=== PATIENT | male | born 1990 | race Caucasian/White ===

== ENCOUNTER 2019-06-08 12:40 | Emergency (ER) | payer OTHER ==
[2019-06-08 12:46] VITALS: BP 147/96; PULSE 72; TEMP 98; BMI 21.4
[2019-06-08] MEDS ORDERED: LIDOCAINE HCL 1%, 10 MG/ML (20ML VIAL) ONE (13:03)
--- NOTE | 2019-06-08 13:33 | PDOC ---
History of Present Illness - General Chief Complaint: Injury Stated Complaint: INJURY/LT. SHOUDLER Time Seen by Provider: 06/08/19 12:59 - History of Present Illness Initial Comments: 06/08/19 13:31 29-year-old male without comorbidities presents for evaluation of left shoulder pain after traction type injury which occurred while walking down steps Past History - Past Medical History Allergies/Adverse Reactions: Allergies Allergy/AdvReac Type Severity Reaction Status Date / Time No Known Allergies Allergy Verified 06/08/19 12:46 COPD: No - Psycho Social/Smoking Cessation Hx Smoking History: Never smoked Review of Systems - Review of Systems Musculoskeletal: Yes: Joint Pain *Physical Exam - Vital Signs Last Vital Signs Temp Pulse Resp BP Pulse Ox 98 F 72 18 147/96 98 06/08/19 12:43 06/08/19 12:43 06/08/19 12:43 06/08/19 12:43 06/08/19 12:43 - Physical Exam Comments: 06/08/19 13:31 Left shoulder deformity skin color and temperature are normal there is step-off of the glenohumeral joint without gross sensorimotor deficits ED Treatment Course - RADIOLOGY Radiology Studies Ordered: Category Date Time Status SHOULDER-LEFT [RAD] Stat Radiology 06/08/19 12:59 Completed SHOULDER-LEFT [RAD] Stat Radiology 06/08/19 13:23 Taken Medical Decision Making - Medical Decision Making 06/08/19 13:31 X-rays of the left shoulder show it anterior-inferior glenohumeral dislocation 15 cc of 1% lidocaine was injected into the glenohumeral joint gentle traction and countertraction was applied postreduction x-ray showed reduced glenohumeral joint patient was put in a sling and was neurovascularly intact post reduction Discharge - Discharge Information Problems reviewed: Yes Clinical Impression/Diagnosis: Shoulder dislocation Condition: Stable Disposition: HOME - Admission No - Follow up/Referral Referrals: Vito Dorsey DO [Staff Physician] - - Patient Discharge Instructions Additional Instructions: Tylenol and Motrin as directed for pain. Please keep the sling in place remove the sling for hygiene purposes and for gentle range of motion of the elbow. Follow-up with orthopedics in 1 to 2 days without fail for further evaluation and treatment options and return to the emergency room should you have further issues. - Post Discharge Activity Work/Back to School Note: Back to Work
== END 2019-06-08 13:48 | disposition home or self-care (01) ==
LOC: JERFT 12:40
PROC: 0RSKXZZ Reposition Left Shoulder Joint, External Approach (ICD-10-PCS; principal; 2019-06-08)
DX: S43.085A Other dislocation of left shoulder joint, initial encounter (principal); X58.XXXA Exposure to other specified factors, initial encounter; Y93.89 Activity, other specified; Y92.018 Other place in single-family (private) house as the place of occurrence of the external cause; Y99.8 Other external cause status
CPT/HCPCS: 73030-TC-LT-FY; 99282-25

== ENCOUNTER 2025-01-02 14:56 | Emergency (ER) | payer OTHER ==
[2025-01-02 15:04] VITALS: BP 137/103; PULSE 62; RESP 18; TEMP 97.5; BMI 22.9
[2025-01-02 15:40] LABS: ABSOLUTE IMMATURE GRANULOCYTES 0.01 x10^3/uL (0.0-0.031); BASOPHILS # 0.01 x10^3/uL (0.01-0.08); EOSINOPHIL % 1.7 % (0.8-7.0); EOSINOPHILS # 0.11 x10^3/uL (0.04-0.54); HEMATOCRIT 41.6 % (40.1-51.0); HEMOGLOBIN 15.1 g/dL (13.7-17.5); MCHC 36.3 g/dl (32.3-36.5); MEAN CELL VOLUME 85.1 fl (79.0-92.2); MEAN PLT VOLUME 9.2 fl (9.4-12.4); MONOCYTE # 0.74 x10^3/uL (0.30-0.82); MONOCYTE % 11.1 % (5.3-12.2); PLATELET COUNT 191 x10^3/uL (163-337); RDW 11.5 % (12.0-15.6)
[2025-01-02] MEDS ORDERED: HIV POST EXPOSURE PROPHYLAXIS KIT PO ONE (15:49)
[2025-01-02 16:02] LABS: ALBUMIN 5.2 g/dl (3.4-5.0); BILIRUBIN,TOTAL 2.7 mg/dl (0.2-1); CALCIUM 9.7 mg/dl (8.5-10.1); CREATININE 1.1 mg/dl (0.6-1.3); POTASSIUM 3.5 mmol/L (3.5-5.1); TOT PROT 7.6 g/dl (6.4-8.2)
[2025-01-02] MEDS: HIV POST EXPOSURE PROPHYLAXIS KIT PO ONE (16:02)
[2025-01-02 17:02] LABS: HEPATITIS B SURF AG NON-MATERN NON-REACTIVE (NONREACTIVE)
[2025-01-02 17:30] LABS: HCV DIAGNOSTIC IN-HOUSE W/RFLX NON-REACTIVE (NONREACTIVE); HIV INTERPRETATION NEGATIVE (NEGATIVE)
[2025-01-02 17:31] LABS: HCV DIAGNOSTIC IN-HOUSE W/RFLX NON-REACTIVE (NONREACTIVE); HIV INTERPRETATION NEGATIVE (NEGATIVE)
== END 2025-01-02 16:07 | disposition home or self-care (01) ==
LOC: FER 14:56
DX: Z77.21 Contact with and (suspected) exposure to potentially hazardous body fluids (principal)
CPT/HCPCS: 36415; 80053; 85025; 86704; 86803; 87340; 87389; 87517; 99283-25